=== PATIENT | male | born 1995 | race Caucasian/White ===

== ENCOUNTER 2019-08-29 10:34 | Outpatient (CLI) | payer OTHER, SELFPAY ==
--- NOTE | ~2019-08-29 | MR_ITS ---
EXAMINATION: MR brain/brain stem wo/w con DATE: 08/29/2019 12:06 INDICATION: Headache. Transient ischemic attack. TECHNIQUE: Magnetic resonance imaging (MRI) of the brain and brainstem was performed without and with 10 mL MultiHance intravenous contrast. Sequences included sagittal and axial T1-weighted FSE, axial diffusion-weighted FS EPI, axial T2*-weighted GRE, axial T2-weighted FLAIR Propeller, and axial T2-we ighted Propeller. Postcontrast sequences included axial and coronal T1-weighted FSE. Apparent diffusi on coefficient (ADC) maps were created. COMPARISON: Head CT 07/22/2013 FINDINGS: The cerebellar tonsils extend 6 mm inferior to foramen magnum, consistent with Chiari 1 mal formation. There are 2 foci of increased T2-weighted signal intensity in the right frontal lobe deep white matter, which is within normal limits for the patient's age. There is no intracranial hemorrhag e, acute infarction, or abnormal intracranial mass lesion. The ventricles are normal in size. The par anasal sinuses are clear. The orbits are normal. The mastoid air cells are normal. IMPRESSION: 1. Chiari 1 malformation. Reviewed, dictated and finalized at location A. IMPRESSION: 1. Chiari 1 malformation.
[2019-08-29 10:58] LABS: Estimated Glomerular Filt Rate > 60
== END 2019-08-29 10:35 | disposition home or self-care (01) ==
PROVIDERS: PCP Internal Medicine; Visit Provider Internal Medicine
DX: R51 Headache (principal)
CPT/HCPCS: 70553; A9577

== ENCOUNTER 2020-08-05 09:08 | Outpatient (CLI) | payer OTHER, BC, SELFPAY ==
[2020-08-05 11:28] LABS: SARS-CoV-2 RNA PCR Negative (Negative)
== END 2020-08-05 09:09 | disposition home or self-care (01) ==
PROVIDERS: PCP Internal Medicine; Visit Provider Internal Medicine
DX: J02.9 Acute pharyngitis, unspecified (principal); Z20.822 Contact with and (suspected) exposure to COVID-19
CPT/HCPCS: 87081; 87880; C9803; U0003; U0005

== ENCOUNTER 2022-06-27 14:52 | Outpatient (CLI) | payer OTHER, SELFPAY ==
[2022-06-27 15:32] LABS: Influenza Control Valid (Valid)
== END 2022-06-27 14:53 | disposition home or self-care (01) ==
LOC: CHSLAB 15:00
PROVIDERS: PCP Internal Medicine; Visit Provider Nurse Practitioner Family
DX: J10.1 Influenza due to other identified influenza virus with other respiratory manifestations (principal)
CPT/HCPCS: 87804

== ENCOUNTER 2024-09-15 11:39 | Emergency (ER) | payer SELFPAY ==
--- NOTE | ~2024-09-15 | XR_ITS ---
XR lumbar spine 2-3V 09/15/2024 12:17 Indication: Back pain after injury Procedure: 3 views lumbar spine Comparison: 01/26/2015 Findings: There is mild disc narrowing at L5-S1. Vertebral body heights are maintained. No evidence f or spondylolysis or spondylolisthesis. No acute fracture. Mild facet degenerative changes at L5-S1. P edicles intact. Sacral foramen are unremarkable. Impression: 1: Mild lumbar spondylosis. Reviewed, dictated and finalized at location A. Impression: 1: Mild lumbar spondylosis.
[2024-09-15 11:47] VITALS: BP 152/90; PULSE 74; RESP 16; TEMP 36.9; O2SAT 100
--- NOTE | 2024-09-15 11:52 | ED_ITS ---
HPI - Back Pain/Injury General Chief Complaint: Back Pain/Injury Stated Complaint: back pain after lifting garage door Source: patient Mode of arrival: ambulatory Limitations: no limitations History of Present Illness HPI Narrative: Patient is a 28-year-old male with lower back pain for the past couple of months. He hurt his back 2-3 months ago while working on his car underneath and hurt his back in an awkward position. He has been having no major issue since that time except today he was lifting the garage door and it came back again with the same pain. The pain is shooting down his left leg and into the buttocks region. The right side is the more specific pain and a little bit on the left side. No other injuries. MD elicited complaint: back pain and back injury Pertinent past history: prior back pain Onset (ago): month(s) ( 2-3) Timing: intermittent Severity: severe Pain scale (0-10): 8 Similar Symptoms Previously: Yes Quality: sharp Location: lumbar spine ( right side) Radiation: buttocks ( right) and right leg below the knee Exacerbating factors: movement and lifting Relieving factors: immobilization Context: while lifting and turning/twisting Associated symptoms: denies other symptoms Treatments prior to arrival: NSAIDS and acetaminophen Related Data Allergies Allergy/AdvReac Type Severity Reaction Status Date / Time No Known Allergies Allergy Verified 09/15/24 11:42 Review of Systems Review of Systems: All systems reviewed & are unremarkable except as noted in HPI and below Constitutional: Constitutional: Reports no additional constitutional complaints Eyes: Eyes: Reports no additional eye complaints ENT: Reports system reviewed and no additional complaints, except as documented Cardiovascular: Cardiovascular: Reports no additional cardiovascular complaints Respiratory: Respiratory: Reports no additional respiratory complaints Gastrointestinal: Gastrointestinal: Reports no additional gastrointestinal complaints Genitourinary: Genitourinary: Reports no additional male genitourinary complaints Musculoskeletal: Musculoskeletal: Reports no additional musculoskeletal complaints Integumentary/Breasts: Skin/Breast: Reports system reviewed and no additional complaints, except as docu Neurologic: Reports system reviewed and no additional complaints, except as documented Psychiatric: Psychiatric: Reports no additional psychiatric complaints Endocrine: Endocrine: Reports no additional endocrine complaints Hematologic/Lymphatic: Hematologic/Lymphatic: Reports no additional hematologic/lymphatic complaints Allergic/Immunologic: Allergic/Immunologic: Reports no additional allergic/immunologic complaints Exam Const: General: healthy appearing ( distress from pain) Nutritional Appearance: well nourished Orientation/consciousness: patient oriented x3 Limitations: no limitations HENMT: Head: normal to inspection Ears: external ears normal Face/Nose/Sinus: Normal external nose present Eyes: Conjunctivae: conjunctivae normal Pupils: Equal, round and reactive pupils present EOM: EOMs intact bilaterally Neck: Neck: normal visual inspection Chest: Chest palpation & inspection: normal inspection of the chest Resp: Effort & Inspection: normal respiratory effort and not labored Auscultation: clear to auscultation bilaterally and no crackles Cardio: Rate: regular rate Rhythm: regular rhythm Heart sounds: no murmurs GI: Inspection: non-distended GI Palp: Yes Soft to palpation and No Tend erness to palpation present (GI) Auscultation: normal bowel sounds : General: Yes bladder normal to palpation Back/Spine/Pelvis: Back: no CVA tenderness Other: tender right lower spine at the lumbar region more so to the lateral aspect and the midline; no midline step-offs or deformities; straight leg test on the right was equivocal Skin: General skin exam: normal color Rashes: no rashes Wounds: no wounds Neuro: General: patient oriented x3, no meningeal signs, no focal motor deficits and CN's II-XI intact bilaterally Cranial nerves: Yes Nystagmus not present Speech: normal speech Gait exam (Neuro): gait abnormal Other: difficulty walking secondary to pain Extrem: General: normal to inspection Psych: Mental Status: mental status grossly normal Affect: normal affect Attitude: cooperative Course Vital Signs Vital signs: Vital Signs Temperature 36.9 C 09/15/24 11:47 Pulse Rate 09/15/24 11:47 Respiratory Rate 09/15/24 11:47 Blood Pressure 152/90 H 09/15/24 11:47 Pulse Oximetry 09/15/24 11:47 Oxygen Delivery Room Air 09/15/24 11:47 Temperature 36.9 C 09/15/24 11:47 Pulse Rate 74 09/15/24 11:47 Respiratory Rate 16 09/15/24 11:47 Blood Pressure 152/90 H 09/15/24 11:47 Pulse Oximetry 09/15/24 11:47 Oxygen Delivery Room Air 09/15/24 11:47 MDM - Back Pain/Injury MDM Narrative Medical decision making narrative: patient is a 28-year-old male with right lower back lumbar pain after lifting a garage door today. Will do x-ray and Toradol at this time. Patient declined CT scan due to praise as we discussed doing that 1st to his positioning and he said he would be able to attempt to stand for the x-rays. Imaging Data Attestation: I personally reviewed and interpreted this imaging study as follows: Radiologist's impression: X-ray lumbar spine shows no acute process Discharge Plan Discharge Clinical Impression: Lumbar radiculopathy Patient Disposition: Home Condition: Stable Instructions: Lumbar Radiculopathy (ED) Additional Instructions: please follow-up with primary doctor in the next week. I suggest a CT or MRI of the lumbar spine if pain does not resolve with medical management. Patient Language: [place] Prescriptions: New prednisone 20 mg tablet 40 mg PO DAILY 4 Days Qty: 8 0RF hydrocodone-acetaminophen 5-325 mg tablet 1 tablet PO Q8H PRN (Reason: pain) Qty: 20 0RF Rx Instructions: 1-2 tabs per dose Follow-up/Referrals: Mara Matute MD [Primary Care Provider] - Time of Disposition: 12:43
[2024-09-15] MEDS: KETOROLAC (*BKC) 60 MG/2 ML VIAL IM (11:57)
--- OUTSIDE RECORDS SUMMARY | 2024-09-15 12:02 | XMS_ITS ---
Author Organization Unknown Address [address] [place] [address] [phone] Phone Care Team Providers Care Bi Architect Name Role Phone NO PCP Attending Unavailable Immunization Immunization Date Status Additional Notes Code Code System OPV 04/25/1995 Completed 02 CVX OPV 06/27/1995 Completed 02 CVX OPV 10/24/1995 Completed 02 CVX MMR 08/27/1996 Completed 03 CVX MMR 12/13/2000 Completed 03 CVX Hep B, adolescent or pediatric 1994 Completed 08 CVX Hep B, adolescent or pediatric 04/25/1995 Completed 08 CVX Hep B, adolescent or pediatric 06/27/1995 Completed 08 CVX IPV 12/13/2000 Completed 10 CVX DTaP 12/13/2000 Completed 20 CVX DTP-Hib 04/25/1995 Completed 22 CVX DTP-Hib 06/27/1995 Completed 22 CVX DTP-Hib 10/24/1995 Completed 22 CVX DTP-Hib 08/27/1996 Completed 22 CVX HPV, quadrivalent 10/30/2012 Completed 62 C VX meningococcal MCV4P 10/30/2012 Completed 114 CVX Tdap 10/30/2012 Completed 115 CVX Tdap 07/24/2022 Completed 115 CVX Influenza, split virus, trivalent, PF 01/18/2015 Completed 140 CVX Social History Type Status Start Date End Date Code Code Syst em Sex Male Hospital Discharge Instructions Should you have any questions prior to discharge, please contact a member of your healthcare team. If you have left the hospital and have any questions, please contact your primary care physician. Reason For Referral No Data Found Plan of Treatment No Data Found Personal Care Team Section Performer Name Performer Role Active Date Inactive Da te
--- OUTSIDE RECORDS SUMMARY | 2024-09-15 12:29 | XMS_ITS ---
Author Organization Unknown Address [address] [place] [address] [phone] Phone Care Team Providers Care Meat Carver Name Role Phone NO PCP Attending Unavailable [...]
[2024-09-15 13:04] VITALS: BP 136/71; PULSE 61; RESP 18; TEMP 36.7; O2SAT 100
== END 2024-09-15 13:00 | disposition home or self-care (01) ==
PROVIDERS: Emergency Provider Emergency Medicine; PCP Internal Medicine
DX: M54.50 Low back pain, unspecified (principal); M54.16 Radiculopathy, lumbar region
CPT/HCPCS: 72100; 96372; 99283; J1885